=== PATIENT | male | born 1985 | race Caucasian/White ===

== ENCOUNTER 2018-01-05 02:16 | Emergency (ER) | payer MEDICAID ==
[2018-01-05] MEDS: Metoclopramide 10 MG/2 ML SDV ONE (02:30)
[2018-01-05] MEDS ORDERED: Metoclopramide 10 MG/2 ML SDV IVPUSH ONE (02:30)
[2018-01-05] MEDS: Sodium Chloride 0.9% 1,000 ML IV ONE (02:30)
--- NOTE | 2018-01-05 03:03 | EDM.PDOC ---
ED HPI GENERAL MEDICAL PROBLEM - General Chief Complaint: Gastrointestinal Problem Stated Complaint: Abdominal pain Time Seen by Provider: 01/05/18 02:48 Source of Information: Reports: Patient History Limitations: Reports: No Limitations - History of Present Illness INITIAL COMMENTS - FREE TEXT/NARRATIVE: Patient is a 32-year-old gentleman who presents to the emergency department this morning with a complaint of nausea, vomiting, and abdominal pain. Patient states that he was getting ready for bed, went to the bathroom, and felt nauseous. Vomited several times and developed abdominal pain shortly after. Patient has a history of multiple abdominal surgeries. Patient denies fever, chest pain, blood in vomitus, diarrhea, or recent trauma. Patient admits to consuming alcohol this evening. Patient requesting Dilaudid for pain. Onset: Today Onset Date: 01/05/18 Onset Time: 01:30 Duration: Intermittent Location: Reports: Abdomen Quality: Reports: Burning Severity: Mild Improves with: Reports: None Worsens with: Reports: None Associated Symptoms: Reports: Nausea/Vomiting Abdomen Pain Score (Numeric/FACES): 8 - Related Data Allergies Allergy/AdvReac Type Severity Reaction Status Date / Time morphine Allergy Nausea and Verified 01/05/18 02:20 Vomiting mushroom Allergy Nausea and Verified 01/05/18 02:20 Vomiting Penicillins Allergy Difficulty Verified 01/05/18 02:20 Breathing venom-honey bee Allergy Other Verified 01/05/18 02:20 [bee venom (honey bee)] bee stings Allergy Anaphylactic Uncoded 06/04/16 14:53 Shock heroin Allergy Cardiac Uncoded 06/04/16 14:53 Arrest Home Meds: Home Meds . [No Known Home Meds] 06/04/16 [History] Past Medical History Gastrointestinal History: Reports: None Neurological History: Reports: Head Trauma Psychiatric History: Reports: Bipolar, Psych Hospitalization(s), Schizophrenia - Past Surgical History GI Surgical History: Reports: Other (See Below) Musculoskeletal Surgical History: Reports: Other (See Below) Social & Family History - Family History Family Medical History: Noncontributory - Caffeine Use Caffeine Use: Reports: Coffee, Soda ED ROS GENERAL - Review of Systems Review Of Systems: ROS reveals no pertinent complaints other than HPI. Constitutional: Reports: No Symptoms HEENT: Reports: No Symptoms Respiratory: Reports: No Symptoms Cardiovascular: Reports: No Symptoms Endocrine: Reports: No Symptoms GI/Abdominal: Reports: Abdominal Pain, Nausea, Vomiting. Denies: Black Stool, Bloody Stool, Constipation, Diarrhea, Hematochezia, Melena : Reports: No Symptoms Musculoskeletal: Reports: No Symptoms Skin: Reports: No Symptoms Neurological: Reports: No Symptoms Psychiatric: Reports: No Symptoms Hematologic/Lymphatic: Reports: No Symptoms Immunologic: Reports: No Symptoms ED EXAM, GI/ABD - Physical Exam Exam: See Below Exam Limited By: No Limitations General Appearance: Alert, WD/WN, No Apparent Distress Throat/Mouth: Normal Inspection, Normal Oropharynx, No Airway Compromise Head: Atraumatic, Normocephalic Neck: Normal Inspection Respiratory/Chest: No Respiratory Distress, Lungs Clear, Normal Breath Sounds, No Accessory Muscle Use, Chest Non-Tender Cardiovascular: Normal Peripheral Pulses, Regular Rate, Rhythm, No Murmur GI/Abdominal Exam: Normal Bowel Sounds, Soft, Tender (Diffusely). No: Distended , Guarding, Rigid, Rebound Back Exam: Normal Inspection. No: CVA Tenderness (L), CVA Tenderness (R) Extremities: Normal Inspection, No Pedal Edema Neurological: Alert, Oriented, Normal Cognition Psychiatric: Normal Affect, Normal Mood Skin Exam: Warm, Dry, Intact, Normal Color, No Rash Course - Vital Signs Last Recorded V/S: Last Vital Signs Temp 98.3 F 01/05/18 03:32 Pulse 86 01/05/18 03:32 Resp 14 01/05/18 03:32 BP 142/83 H 01/05/18 03:32 Pulse Ox 97 01/05/18 03:32 - Orders/Labs/Meds Orders: Active Orders 24 hr Category Date Time Status Abdomen Pelvis w Cont [CT] Stat Exams 01/05/18 02:50 Ordered DRUG SCREEN, URINE [URCHEM] Stat Lab 01/05/18 02:52 Ordered Labs: Laboratory Tests 01/05/18 01/05/18 01/05/18 Range/Units 02:20 02:20 02:20 WBC 8.8 (5.0-10.0) 10^3/uL RBC 4.87 (4.50-6.00) 10^6/uL Hgb 13.7 D (13.0-17.0) g/dL Hct 42.1 (40.0-52.0) % MCV 86.6 D (82.0-92.0) fL MCH 28.1 (27.0-31.0) pg MCHC 32.5 (32.0-36.0) g/dL RDW 13.1 (11.5-14.5) % Plt Count 260 D (150-300) 10^3/uL MPV 8.2 (7.4-10.4) fL Neut % (Auto) 57.8 (50.0-70.0) % Lymph % (Auto) 29.2 (20.0-40.0) % [place] % (Auto) 9.4 H (2.0-8.0) % Eos % (Auto) 3.5 H (1.0-3.0) % Baso % (Auto) 0.1 (0.0-1.0) % Neut # (Auto) 5.1 (2.5-7.0) 10^3/uL Lymph # (Auto) 2.6 (1.0-4.0) 10^3/uL [place] # (Auto) 0.8 (0.1-0.8) 10^3/uL Eos # (Auto) 0.3 (0.1-0.3) 10^3/uL Baso # (Auto) 0.0 (0.0-0.1) 10^3/uL Sodium 141 (136-145) mmol/L Potassium 3.8 (3.3-5.3) mmol/L Chloride 103 (98-115) mmol/L Carbon Dioxide 25.1 (21.0-32.0) mmol/L Anion Gap 16.7 H (5-15) mmol/L BUN 6 (6-25) mg/dL Creatinine 0.82 (0.51-1.17) mg/dL Est Cr Clr Drug Dosing 131.06 mL/min Estimated GFR (MDRD) > 60 mL/min Glucose 101 (70-110) mg/dL Calcium 8.6 L (8.7-10.3) mg/dL Total Bilirubin 0.3 (0.2-1.0) mg/dL AST 29 (15-37) U/L ALT 41 (12-78) U/L Alkaline Phosphatase 99 (46-116) IU/L Total Protein 6.7 (6.4-8.2) g/dL Albumin 3.63 (3.00-4.80) g/dL Amylase 48 (25-125) U/L Lipase 105 (73-393) U/L Urine Opiates Screen (NEGATIVE) Ur Oxycodone Screen (NEGATIVE) Urine Methadone Screen (NEGATIVE) Ur Propoxyphene Screen (NEGATIVE) Ur Barbiturates Screen (NEGATIVE) Ur Tricyclics Screen (NEGATIVE) Ur Phencyclidine Scrn (NEGATIVE) Ur Amphetamine Screen (NEGATIVE) U Methamphetamines Scrn (NEGATIVE) U Benzodiazepines Scrn (NEGATIVE) U Cocaine Metab Screen (NEGATIVE) U Marijuana (THC) Screen (NEGATIVE) Ethyl Alcohol 111 H (0-3) mg/dL 01/05/18 Range/Units 03:12 WBC (5.0-10.0) 10^3/uL RBC (4.50-6.00) 10^6/uL Hgb (13.0-17.0) g/dL Hct (40.0-52.0) % MCV (82.0-92.0) fL MCH (27.0-31.0) pg MCHC (32.0-36.0) g/dL RDW (11.5-14.5) % Plt Count (150-300) 10^3/uL MPV (7.4-10.4) fL Neut % (Auto) (50.0-70.0) % Lymph % (Auto) (20.0-40.0) % [place] % (Auto) (2.0-8.0) % Eos % (Auto) (1.0-3.0) % Baso % (Auto) (0.0-1.0) % Neut # (Auto) (2.5-7.0) 10^3/uL Lymph # (Auto) (1.0-4.0) 10^3/uL [place] # (Auto) (0.1-0.8) 10^3/uL Eos # (Auto) (0.1-0.3) 10^3/uL Baso # (Auto) (0.0-0.1) 10^3/uL Sodium (136-145) mmol/L Potassium (3.3-5.3) mmol/L Chloride (98-115) mmol/L Carbon Dioxide (21.0-32.0) mmol/L Anion Gap (5-15) mmol/L BUN (6-25) mg/dL Creatinine (0.51-1.17) mg/dL Est Cr Clr Drug Dosing mL/min Estimated GFR (MDRD) mL/min Glucose (70-110) mg/dL Calcium (8.7-10.3) mg/dL Total Bilirubin (0.2-1.0) mg/dL AST (15-37) U/L ALT (12-78) U/L Alkaline Phosphatase (46-116) IU/L Total Protein (6.4-8.2) g/dL Albumin (3.00-4.80) g/dL Amylase (25-125) U/L Lipase (73-393) U/L Urine Opiates Screen Negative (NEGATIVE) Ur Oxycodone Screen Negative (NEGATIVE) Urine Methadone Screen Negative (NEGATIVE) Ur Propoxyphene Screen Negative (NEGATIVE) Ur Barbiturates Screen Negative (NEGATIVE) Ur Tricyclics Screen Negative (NEGATIVE) Ur Phencyclidine Scrn Negative (NEGATIVE) Ur Amphetamine Screen Negative (NEGATIVE) U Methamphetamines Scrn Negative (NEGATIVE) U Benzodiazepines Scrn Negative (NEGATIVE) U Cocaine Metab Screen Negative (NEGATIVE) U Marijuana (THC) Screen Negative (NEGATIVE) Ethyl Alcohol (0-3) mg/dL Meds: Medications Discontinued Medications Generic Name Dose Route Start Last Admin Trade Name Freq PRN Reason Stop Dose Admin Sodium Chloride 1,000 mls @ 2,000 mls/hr 01/05/18 02:30 01/05/18 02:30 Normal Saline IV 01/05/18 02:59 2,000 mls/hr .BOLUS ONE Administration Metoclopramide HCl Confirm 01/05/18 02:29 01/05/18 02:30 Reglan Administered 01/05/18 02:30 10 mg Dose Administration 10 mg .ROUTE .[employer]-MED ONE - Radiology Interpretation Free Text/Narrative:: 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 Patient will follow-up with PCP or return to emergency department if symptoms continue. Departure - Departure Time of Disposition: 04:06 Disposition: Home, Self-Care 01 Condition: Good Clinical Impression: Abdominal pain, Nausea and vomiting in adult - Discharge Information Instructions: Abdominal Pain, Adult, [id number], Nausea and Vomiting, Adult Referrals: Greg Espana MD [Physician] - Forms: ED Department Discharge Additional Instructions: Follow-up with PCP in one to 2 days. Return to emergency department sooner if symptoms continue or worsen. - My Orders Last 24 Hours: My Active Orders 01/05/18 02:50 Abdomen Pelvis w Cont [CT] Stat 01/05/18 02:52 DRUG SCREEN, URINE [URCHEM] Stat - Assessment/Plan Last 24 Hours: My Active Orders 01/05/18 02:50 Abdomen Pelvis w Cont [CT] Stat 01/05/18 02:52 DRUG SCREEN, URINE [URCHEM] Stat Assessment:: Abdominal pain, nausea, vomiting
[2018-01-05 03:05] LABS: ANION GAP 16.7 mmol/L (5-15); CHLORIDE,CL 103 mmol/L (98-115); SODIUM,NA 141 mmol/L (136-145)
[2018-01-05 03:33] VITALS: BP 142/83
== END 2018-01-05 04:15 | disposition home or self-care (01) ==
LOC: KA.ED 02:16
DX: R10.9 Unspecified abdominal pain (principal); R11.2 Nausea with vomiting, unspecified; Z88.5 Allergy status to narcotic agent; Z88.0 Allergy status to penicillin; Z91.030 Bee allergy status; Z88.6 Allergy status to analgesic agent
CPT/HCPCS: 36415; 80053; 80305-QW; 82150; 83690; 85025; 96374; 99284; G0480; J2765; J7030

== ENCOUNTER 2018-01-18 23:26 | Emergency (ER) | payer MEDICAID ==
[2018-01-18 23:35] VITALS: BP 135/64
--- NOTE | 2018-01-19 00:19 | EDM.PDOC ---
ED HPI GENERAL MEDICAL PROBLEM - General Chief Complaint: General Stated Complaint: Difficulty swallowing - Related Data Allergies Allergy/AdvReac Type Severity Reaction Status Date / Time morphine Allergy Nausea and Verified 01/18/18 23:28 Vomiting mushroom Allergy Nausea and Verified 01/18/18 23:28 Vomiting Penicillins Allergy Difficulty Verified 01/18/18 23:28 Breathing venom-honey bee Allergy Anaphylactic Verified 01/18/18 23:28 [bee venom (honey bee)] Shock bee stings Allergy Anaphylactic Uncoded 01/18/18 23:28 Shock heroin Allergy Cardiac Uncoded 01/18/18 23:28 Arrest Home Meds: Home Meds Acetaminophen [Tylenol] 650 mg PO Q4H PRN 01/18/18 [History] Ondansetron [Zofran ODT] 4 mg PO Q6H PRN 01/18/18 [History] Past Medical History HEENT History: Reports: Other (See Below) Other HEENT History: left eye deviation Gastrointestinal History: Reports: Other (See Below) Other Gastrointestinal History: colitis. cancer Neurological History: Reports: Head Trauma, Seizure Psychiatric History: Reports: Bipolar, Psych Hospitalization(s), Schizophrenia Oncologic (Cancer) History: Reports: Colon - Past Surgical History Head Surgeries/Procedures: Reports: None GI Surgical History: Reports: Other (See Below) Other GI Surgeries/Procedures: bowel resection Oncologic Surgical History: Reports: Other (See Below) Other Oncologic Surgeries/Procedures: bowel resection Dermatological Surgical History: Reports: None Social & Family History - Family History Family Medical History: Noncontributory - Tobacco Use Smoking Status *Q: Current Every Day Smoker Years of Tobacco use: 28 Packs/Tins Daily: 2 Second Hand Smoke Exposure: Yes - Caffeine Use Caffeine Use: Reports: Coffee, Soda - Alcohol Use Days Per Week of Alcohol Use: 7 Number of Drinks Per Day: 2 Total Drinks Per Week: 14 - Recreational Drug Use Recreational Drug Use: Yes Drug Use in Last 12 Months: No Course - Vital Signs Last Recorded V/S: Last Vital Signs Temp 98.3 F 01/18/18 23:33 Pulse 79 01/18/18 23:33 Resp 18 01/18/18 23:33 BP 135/64 01/18/18 23:33 Pulse Ox 98 01/18/18 23:33 Departure - Discharge Information Instructions: Dysphagia Referrals: Long,Shayy B, ELECTRO OPTICS ENGINEER [Nurse Practitioner] - PCP,Unknown [Primary Care Provider] - Forms: ED Department Discharge Additional Instructions: 1. Establish a primary care in [place]. 2. Will likely need Upper GI Study done as these symptoms have been chronic. 3. Clinic is open on Saturday.
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
== END 2018-01-19 00:20 | disposition home or self-care (01) ==
LOC: KA.ED 23:26
DX: R13.10 Dysphagia, unspecified (principal); F17.210 Nicotine dependence, cigarettes, uncomplicated; Z88.0 Allergy status to penicillin; Z91.018 Allergy to other foods; Z79.899 Other long term (current) drug therapy; Z88.5 Allergy status to narcotic agent
CPT/HCPCS: 99283